=== PATIENT | female | born 1950 | race Caucasian/White ===

== ENCOUNTER 2020-06-15 07:32 | Outpatient (REF) | payer MEDICARE, MEDICAID, SELFPAY ==
[2020-06-15 11:17] LABS: Hematocrit 40.8 % (37-47); Hemoglobin 12.9 g/dl (12.0-16.0); Mean Corpuscular HGB Conc 31.6 g/dl (31.0-35.0); Mean Corpuscular Hemoglobin 28.6 pg (27.0-33.0); Mean Corpuscular Volume 90.5 fL (80-98); Mean Platelet Volume 11.7 fL (9.4-12.3); Platelet Count 183 X10*3/uL (160-400); Red Blood Count 4.51 X10*6/uL (4.20-5.50); Red Cell Distribution Width 12.6 % (11.0-16.0); White Blood Count 7.4 X10*3/uL (4.8-10.8)
[2020-06-15 12:04] LABS: Alanine Aminotransferase 16 U/L (0-31); Alkaline Phosphatase 68 U/L (39-117); Anion Gap 11 (12-20); Aspartate Amino Transferase 19 U/L (5-31); Bilirubin Total 0.4 mg/dL (0.0-1.0); Blood Urea Nitrogen 13 mg/dL (9-16); Carbon Dioxide 29 mmol/L (22-29); Chloride 104 mmol/L (96-108); Cholesterol 126 mg/dL; Estimated Glomerular Filt Rate 57; Glucose Fasting 114 mg/dL (60-99); HDL Cholesterol 46 mg/dL; LDL Cholesterol Calculated 60 mg/dl; Potassium 5.1 mmol/L (3.3-5.1); Sodium 139 mmol/L (135-145); Total Protein 6.6 g/dL (6.5-8.0); Triglycerides 103 mg/dL
[2020-06-15 12:36] LABS: Estimated Average Glucose 114 mg/dL; Hemoglobin A1c % 5.6 %
== END 2020-06-15 07:33 | disposition home or self-care (01) ==
LOC: HO.MANLDS 07:32
PROVIDERS: PCP Internal Medicine; Visit Provider Internal Medicine
DX: R73.01 Impaired fasting glucose (principal); I10 Essential (primary) hypertension
CPT/HCPCS: 36415; 80053; 80061; 83036; 85027

== ENCOUNTER 2023-03-08 10:36 | Outpatient (REF) | payer MEDICARE, MEDICAID, SELFPAY ==
[2023-03-08 13:16] LABS: Appearance Urine Turbid; Color Urine Yellow; Glucose Urine UA Negative (Negative); Leukocyte Esterase Urine Large (3+) (Negative); Nitrite Urine Positive (Negative); PH 5.5 (5.0-9.0); UMIC TRIGGER UACC YES; Urine Blood Large (3+) (Negative); Urine Ketones Negative (Negative); Urine Protein 300 (3+) mg/dL (Neg-Trace)
[2023-03-08 13:27] LABS: Bacteria Urine 4+ (None Seen); Hyaline Casts Urine 0-2 /LPF (0-2); Squamous Epithelial Cell Urine >20 /HPF (0-2); UACC Culture Trigger YES; WBC Urine >50 /HPF (0-5)
== END 2023-03-08 10:37 | disposition home or self-care (01) ==
LOC: HO.MANLDS 10:36
PROVIDERS: Visit Provider Physician Assistant
DX: R30.0 Dysuria (principal)
CPT/HCPCS: 81001; 87086; 87088; 87186

== ENCOUNTER 2023-03-28 10:53 | Outpatient (REF) | payer OTHER, SELFPAY ==
[2023-03-28 13:23] LABS: Appearance Urine Clear; Color Urine Yellow; Glucose Urine UA Negative (Negative); Leukocyte Esterase Urine Trace (Negative); Nitrite Urine Negative (Negative); PH 5.5 (5.0-9.0); Specific Gravity - Urine 1.015 (1.005-1.025); UMIC TRIGGER UACC YES; Urine Blood Moderate (2+) (Negative); Urine Ketones Negative (Negative); Urine Protein 100 (2+) mg/dL (Neg-Trace)
[2023-03-28 13:26] LABS: Bacteria Urine None Seen (None Seen); Hyaline Casts Urine 0-2 /LPF (0-2); UACC Culture Trigger YES
== END 2023-03-28 10:54 | disposition home or self-care (01) ==
LOC: HO.MANLDS 10:53
PROVIDERS: Visit Provider Physician Assistant
DX: R30.0 Dysuria (principal)
CPT/HCPCS: 81001; 87086

== ENCOUNTER 2024-06-17 14:14 | Outpatient (REF) | payer OTHER, SELFPAY ==
--- OUTSIDE RECORDS SUMMARY | 2024-06-17 15:36 | XMS_ITS | Encounter Summary ---
Author Organization [employer] Address [address] [facility] [address] [place] [address] Care Team Providers Care Sheet Metal Supervisor Name Role Phone PcpTristian Unassigned Primary Care Provider U navailable Encounter Details Date Type Department Care Team (Latest Contact Info) Description 03/30/2020 Abstract [facility] Dental, Provider, DDS Social History Tobacco Use Types Packs/Day Years Used Date Smoking Tobacco: Never Assessed Comments Unknown Sex and Gender Information Value Date Recorded Sex Assigned at Female 03/10/2022 6:44 PM EDT Legal Sex Female 5:35 PM EDT Gender Identity Choose not to disclose 3 11:54 AM EST Sexual Orientation Choose not to disclose 2022 11:54 AM EST documented as of this encounter Plan of Treatment Upcoming Encounters Date Type Department Care Team (Late st Contact Info) Description 08/14/2024 12:00 PM EDT Office Visit [facility] Dental [address] [place] [address] Yuli Ramirez LLD [address] [place] [address] documented as of this encounter Visit Diagnoses Not on filedocumented in this encounter Care Teams Sheet Metal Supervisor Relationship Specialty Start Date End Date PcpTristianssusha PCP - General Family Medicine 09/05/22 documented as of this encounter
--- OUTSIDE RECORDS SUMMARY | 2024-06-17 15:36 | XMS_ITS | Clinical Summary ---
Author Organization [employer] Address [address] [facility] [address] [place] [address] Care Team Providers Care Service Agent Name Role Phone PcpTristian Unassigned Primary Care Provider U navailable Allergies Active Allergy Reactions Criticality Noted Date Comments Codeine Nausea Only 05/26/2022 Oxycodone-Acetaminophen 05/26/2022 Other reaction(s): sick to stomach Medications atenolol (Tenormin) 100 MG tablet Atenolol Active albuterol 108 (90 Base) MCG/ACT inhaler INHALE 2 PUFFS BY MOUTH EVERY 4 HOURS NEEDED FOR SHORTNESS OF BREATH OR WHEEZING 2 Active fluticasone (Flonase) 50 MCG/ACT nasal spray SHAKE LIQUID AND USE 2 SPRAYS IN EACH NOSTRIL EVERY DAY 2 Active meloxicam (Mobic) 15 MG tablet Take 15 mg by mouth in the morning. 3 Active simvastatin (Zocor) 40 MG tablet 1 tablet in the morning. Active Sod Fluoride-Potass ium Nitrate 1.1-5 % paste Apply a thin ribbon of SF 5000 Plus to a toothbrush. [place] thoroughly for two minutes. Expectorate after use. For best results, do not eat, drink, or rinse for 30 minutes. 51 g 4 3 Active Incruse Ellipta 62.5 MCG/ACT aerosol powder Inhale 1 puff in the morning. 3 Active traMADol (Ultram) 50 MG tablet TAKE 2 TABLETS BY MOUTH FOUR TIMES DAILY NEEDED 3 Active QUEtiapine (SEROquel) 100 MG tablet Take 100 mg by mouth at bedtime. 3 Active oxybutynin XL (Ditropan-XL) 10 MG 24 hr tablet Take 10 mg by mouth in the morning. 3 Active nicotine (Nicoderm, Step 1) 21 MG/24HR patch Place 1 patch on the skin in the morning. Active mirtazapine (Remeron) 30 MG tablet Take 30 mg by mouth in the morning. 3 Active hydroquinone 4 % cream APPLY TO THE AFFECTED AREA ONCE EVERY DAY 2 Active fluticasone (Flonase) 50 MCG/ACT nasal spray Administer 2 sprays into affected nostril(s) in the morning. 2 Active cetirizine (ZyrTEC) 10 MG tablet 1 tablet in the morning. Active aspirin 81 MG EC tablet Take 81 mg by mouth in the morning. Active acetaminophen (Tylenol) 325 MG tablet Take 650 mg by mouth every 6 (six) hours if needed. 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 05/26/2022 Encounters Date Type Department Care Team Description 03/22/2024 10:40 AM EST Office Visit [facility] DENTAL [address] [place] [address] Atilio Watts Jr., DMD from Last 3 Months Immunizations Name Administration Dates Next Due Influenza High-dose Quadrivalent Preservative Fr 03/03/2022 Influenza Quadrivalent Adjuvanted 03/15/2021 Influenza, High Dose Seasonal, Preservative Free 01/11/2018 Influenza, seasonal, injectable, preservative fr 01/09/2020 Pfizer Covid-19 Vaccine 12+ 03/01/2021 Pneumococcal Conjugate PCV 13 01/05/2018 Tdap 01/15/2018 Zoster, Recombinant 03/09/2018 Family History Medical History Relation Name Comments Cataracts Mother Relation Name Status Comments Mother Social History Tobacco Use Types Packs/Day Years Used Date Smoking Tobacco: Some Days Cigarettes Passive Smoke Exposure: Never Tobacco Cessation:Ready to Q uit: Not Asked; Counseling Given: Not Answered Alcohol Use Standard Drinks/Week Comments Not Currently 0 (1 standard drink = 0.6 oz pur e alcohol) Comments Unknown Sex and Gender Information Value Date Recorded Sex Assigned at Female 03/10/2022 6:44 PM EDT Legal Sex Female 5:35 PM EDT Gender Identity Choose not to disclose 11:54 AM EST Sexual Orientation Choose not to disclose 2022 11:54 AM EST Plan of Treatment Upcoming Encounters Date Type Department Care Team (Late st Contact Info) Description 08/14/2024 12:00 PM EDT Office Visit [facility] Dental [address] [place] [address] Yuli Ramirez LLD [address] [place] [address] Health Maintenance Due Date Last Done Comments CT Colonography 1949 Colonoscopy 1949 Colorectal Cancer Screening 1949 Depression Screening 1949 FIT DNA/Cologuard 1949 FIT 1949 FOBT 1949 Lipid Panel 1949 SDOH Screening 1949 Sigmoidoscopy 1949 Alcohol/Substance Use Screening 1961 Hepatitis C Screening 1967 RSV Patients and Patients Aged 60 years or older (1 - Risk 60-74 years 1-dose series) 2009 Pneumococcal Vaccine: 50+ Years (2 of 2 - PPSV23) 03/02/2018 01/05/2018 Zoster Vaccines (2 of 2) 05/04/2018 03/09/2018 Mammogram 09/10/2020 09/10/2018, 07/25/2017 COVID-19 Vaccine ( season) 2024 02/22/2023, 03/01/2022, 03/01/2021, Additional history exists Tobacco Screening 06/30/2024 06/30/2023 Dental X-Ray: Bitewings 07/01/2024 06/30/19 24, 09/28/2020, 05/28/2019, Additional history exists Dental Oral Exam 08/09/2024 02/08/2024, , 05/26/2022, Additional history exists Dental Prophylaxis 08/09/2024 02/08/2024, 0 06/30/2023, 11/23/2022, Additional history exists Dental X-Ray: Full Mouth 07/01/2026 06/30/2023, 12/2017 DTaP/Tdap/Td Vaccines (2 - Td or Tdap) 01/16/2028 01/15/2018 Influenza Vaccine Completed 01/22/2024, , 03/03/2022, Additional history exists HIB Vaccines Aged Out No longer eligi ble based on patient's age to complete this topic HPV Vaccines Aged Out No longer eligi ble based on patient's age to complete this topic Hepatitis A Vaccines Aged Out No long er eligible based on patient's age to complete this topic Hepatitis B Vaccines Aged Out No long er eligible based on patient's age to complete this topic IPV Vaccines Aged Out No longer eligi ble based on patient's age to complete this topic Meningococcal Vaccine Aged Out No bob jesenia eligible based on patient's age to complete this topic RSV under 20 months Aged Out No longe r eligible based on patient's age to complete this topic Rotavirus Vaccines Aged Out No longer eligible based on patient's age to complete this topic Procedures Procedure Name Priority Date/Time Associated Diagnosis Comments 8 I RESTORATIVE - RESIN-BASED COMPOSITE RESTORATIONS - DIRECT - RESIN-BASED COMPOSITE - ONE SURFACE, ANTERIOR Routine 03/22/2024 10:40 AM EST Full PROPHYLAXIS - ADULT Routine 024 10:10 AM EDT PERIODIC ORAL EVALUATION - ESTABLISHED PATIENT Routine 02/08/2024 10:10 AM EDT DIAGNOSTIC - DIAGNOSTIC IMAGING - INTRAORAL - COMPREHENSIVE SERIES OF RADIOGRAPHIC IMAGES Routine 06/30/2023 11:00 AM EST from Last 3 Months or Most Recently Relevant to Health Maintenance Insurance DENTAL - [facility] D[facility] - [facility]SN FULL (MEDICAID) Care Teams Service Agent Relationship Specialty Start Date End Date PcpTristian Unassigned PCP - General Family Medicine 09/05/22
--- OUTSIDE RECORDS SUMMARY | 2024-06-17 15:36 | XMS_ITS | Data Portability ---
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) [facility] MODERATE MUST MEET 2 OUT OF 3 ELEMENTS: PROBLEMS, DATA OR RISK ELEMENT 1: PROBLEMS ADDRESSED 1 OR MORE CHRONIC ILLNESS WITH EXACERBATION OR 2 OR MORE STABLE CHRONIC ILLNESSES OR 1 UNDIAGNOSED NEW PROBLEM OR 1 ACUTE ILLNESS W/SYMPTOMS OR 1 ACUTE COMPLICATED INJURY ELEMENT 2: DATA MUST MEET 1 OF 3 CATEGORIES CATEGORY 1: REVIEW OF PRIOR EXTERNAL NOTES, REVIEW OF RESULTS, ORDERING OF EACH TEST, ASSESSMENT REQUIRING INDEPENDENT HISTORIAN OR CATEGORY 2: INDEPENDENT INTERPRETATION OF TESTS BY ANOTHER PHYSICIAN OR SPECIALIST OR CATEGORY 3: DISCUSSION OF MGT OR TEST INTERPRETATION W/EXTERNAL PHYSICIAN OR SPECIALIST ELEMENT 3: RISK RISK OF COMPLICATIONS AND/OR MORBIDITY OR MORTALITY OF PATIENT MANAGEMENT PROVIDER MUST THOROUGHLY DOCUMENT EACH ELEMENT THAT IS COVERED Not available 05/10/2023 11:19:38 2023 2023 [id number] [place]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) [facility] MODERATE MUST MEET 2 OUT OF 3 ELEMENTS: PROBLEMS, DATA OR RISK ELEMENT 1: PROBLEMS ADDRESSED 1 OR MORE CHRONIC ILLNESS WITH EXACERBATION OR 2 OR MORE STABLE CHRONIC ILLNESSES OR 1 UNDIAGNOSED NEW PROBLEM OR 1 ACUTE ILLNESS W/SYMPTOMS OR 1 ACUTE COMPLICATED INJURY ELEMENT 2: DATA MUST MEET 1 OF 3 CATEGORIES CATEGORY 1: REVIEW OF PRIOR EXTERNAL NOTES, REVIEW OF RESULTS, ORDERING OF EACH TEST, ASSESSMENT REQUIRING INDEPENDENT HISTORIAN OR CATEGORY 2: INDEPENDENT INTERPRETATION OF TESTS BY ANOTHER PHYSICIAN OR SPECIALIST OR CATEGORY 3: DISCUSSION OF MGT OR TEST INTERPRETATION W/EXTERNAL PHYSICIAN OR SPECIALIST ELEMENT 3: RISK RISK OF COMPLICATIONS AND/OR MORBIDITY OR MORTALITY OF PATIENT MANAGEMENT PROVIDER MUST THOROUGHLY DOCUMENT EACH ELEMENT THAT IS COVERED Not available 2023 10:50:57 01/01/2024 01/01/2024 Patient presente d to office today for their Medicare Annual Wellness Visit. Education was provided on healthy nutrition, including a diet rich in fruits and vegetables, minimizing simple carbohydrates, salt, and saturated fats. Encouraged regular cardiovascular exercise such as walking at least 30 minutes daily, 5 times per week. Emphasized preventive health measures and educated pt on fall prevention and community-based lifestyle interventions to help reduce health risks and promote healthy living. [email or web address] Not available 12/27/2023 14:04:59 Plan of Treatment Reminders Order Date Submit Date Provider Last Modified By Organization Details Last Modified Time Details Appointments FOLLOW UP 15 2024 01:45P M DR KAUR Not available Not available Not available MEDICARE ANNUAL WELLNESS 2024 10:00A M DR KAUR Not available Not available Not available Lab lipid panel, blood 2023 [facility], [address] [place] [address], [place], [address], 01/01/2024 10:59:37 hemoglobi n, gastroint estinal, stool 2023 024 [facility], [address] [place] [address], [address], 01/01/2024 10:59:37 CMP, serum or plasma 2023 024 [facility], [address] [place] [address], [place], [address], 01/01/2024 10:59:37 CBC w/ auto diff 2023 [facility], [address] [place] [address], [place], [address], 01/01/2024 10:59:38 vitamin D, 25-hydrox y, total, serum 2023 [facility], [address] [place] [address], [place], [address], 01/01/2024 10:59:38 Referral None recorded. Procedures None recorded. Surgeries None recorded. Imaging None recorded. Medication Orders triamtere ne 37.5 mg-hydroc hlorothia zide 25 mg tablet 2023 024 [id number], [address], [place], [id number], 05/10/2023 11:21:57 Patient TargetsNo targets recorded. Patient Instructions Encounter Date Encounter Id Patient Instructions Last Modified By Organization Details Last Modified Time 11/18/2022 [id number] prediabetes: car e instructions Not available 11/18/2022 10:23:14 high blood pressure: care instructions Not available 11/18/2022 10:23:15 learning about high blood pressure Not available 11/18/2022 10:23:15 chronic obstructive pulmonary disease (COPD): care instructions Not available 11/18/2022 10:23:15 learning about copd and how to prevent lung infections Not available 11/18/2022 10:23:15 05/10/2023 [id number] leg and ankle edema: care instructions Not available 05/10/2023 11:21:51 2023 [id number] allergies: care instructions Not available 2023 10:50:58 managing your allergies: care instructions Not available 2023 10:50:58 01/01/2024 [id number] pulse oximetry* Not available 01/01/2024 10:58:20 advance care planning: care instructions Not available 01/01/2024 10:58:15 Discussed and explained advance directives such as standard forms to the {{patient caregiv er patient and caregiver}}. Face to face discussion lasted for a duration of ___ minutes. [email or web address] Not available 12/27/2023 14:04:59 Reason for Referral None Reported. Results Created Date Observation Date Name Description Value Unit Range Abnormal Flag Note LastModifiedBy Organization Detail LastModifiedTime 01/01/20 24 01/01/2024 pulse oxime try* Result 99 Not Available [facility] [address] [facility] [address], [place], [address], 12/27/2023 14:06:51 04/07/20 23 04/07/2023 , ligia er No observ ation record ed. [email or web address] [facility] [address] [facility], [place], [address], 04/11/2023 08:39:45 Result Notes None recorded. Problems Name Problem SNOMED Code Status Onset Date Resolution Date Notes Provider Name and Address Organization Details Recorded Time Allergic rhinitis 49484339 Active 2018 Not Available [facility] 3 11:56:27 Osteopeni a 572379220 Active 2019 Not Available [facility] 3 11:56:27 Bilateral cataracts 32321111 Active 2020 Not Available [facility] 3 11:56:27 Hyperkera totic actinic keratosis 797106115 Active 2021 Not Available [facility] 3 11:56:27 Overactiv e urinary bladder 552338920 Active 2021 Not Available [facility] 3 11:56:27 Schizophr enia 36735999 Active 2022 Not Available [facility] 3 11:56:27 Acute exacerbat ion of chronic obstructi ve pulmonary disease 984978014 Active 2022 Not Available [facility] 3 11:56:27 Dysuria 58546557 Active 2022 Not Available [facility] 3 11:56:27 Acute urinary tract infection 247793885 Active 2022 DEIRDRE PEREZ [address] [facility], [place], [address], [facility] 3 09:20:31 Osteoarth ritis of knee 416651009 Active 2022 Noel Kaur DO [address] [facility], [place], [address], [facility] 3 14:10:09 Edema of lower extremity 683374411 Active 2023 Noel KaurDO [address] [place] [address], [address], [facility] 4 11:19:45 Essential hypertens ion 78915896 Active 2017 Not Available [facility] 3 11:56:27 Chronic obstructi ve pulmonary disease 47234601 Active 2017 Not Available [facility] 3 11:56:27 Degenerat ion of lumbar intervert ebral disc 41795769 Active 2017 Not Available [facility] 3 11:56:27 Osteoarth ritis 291177824 Active 2017 Not Available [facility] 3 11:56:27 Impaired fasting glycemia 783973042 Active 2017 Not Available [facility] 3 11:56:27 Tobacco dependenc e syndrome 41196417 Active 2023 Noel KaurDO [address] [place] [address], [address], [facility] 4 10:54:41 Acquired trigger finger of right middle finger 527727010866 105 Active 2023 Noel KaurDO [address] [place] [address], [address], [facility] 4 13:06:58 Notes:Some problems listed i n Document: #[id number] could not be added to this patient's chart. Please review this document and add these problems to the patient's chart manually as needed. Problem Notes None recorded. Procedures Surgical History None recorded. Imaging Results Imaging Date Name Status LastModified by Organiz ation Details LastModified Time 04/07/2023 US, bladder completed [email or web address] [address], [place], [address], 04/11/2023 08:39:45 Procedure Notes None recorded. Medical Equipment None Reported. Allergies Allergen ID Allergen Name Allergen Category Reaction Reaction Severity Criticality Documentation Date Start Date Code Code System Note Provider Name and Address Organization Details Recorded Time 4538 Bactrim medicatio n wheezing moderate Not available 10/09/2020 12828 9 RxNorm DEIRDRE PEREZ [address] [place], [address], [facility] 14:23:51 873 codeine medicatio n Not available Not available Not available 08/16/2017 2670 RxNorm Ginger [facility], [facility] 8 08:16:48 Medications Name Sig Start Date Stop Date Status Note LastModified by Organization Details LastModified Time amoxicillin 500 mg capsule TAKE 4 CAPSULES BY MOUTH 1 TIME 06/17 completed Not Available Not Available Not Available clotrimazol e 10 mg ryan 01/16 completed Not Available Not Available Not Available albuterol sulfate 2.5 mg/3 mL (0.083 %) solution for nebulizatio n USE 1 VIAL VIA NEBULIZAT ION THREE TIMES DAILY active Not Available Not Available No t Available oxybutynin chloride ER 10 mg tablet,exte nded release 24 hr TAKE 1 TABLET BY MOUTH EVERY DAY 05/10 completed Not Available Not Available Not Available azithromyci n 250 mg tablet TAKE 2 TABLETS BY MOUTH ON DAY 1 THEN TAKE 1 TABLET BY MOUTH DAILY FOR 4 MORE DAYS 07/11 completed Not Available Not Available Not Available fluconazole 150 mg tablet TAKE 1 TABLET BY MOUTH ONCE DAILY FOR 3 DAYS 10/06 completed Not Available Not Available Not Available meloxicam 15 mg tablet TAKE 1 TABLET BY MOUTH EVERY DAY 08/19 completed Not Available Not Available Not Available hydroquinon e 4 % topical cream APPLY TO THE AFFECTED AREA ONCE EVERY DAY active Not Available Not Available No t Available sulfamethox azole 800 mg-trimetho prim 160 mg tablet Take 1 tablet every 12 hours by oral route for 7 days. 2024 active Not Available Not Available Not Avai lable tramadol 50 mg tablet TAKE 2 TABLETS BY MOUTH FOUR TIMES DAILY NEEDED active Not Available Not Available No t Available quetiapine 100 mg tablet TAKE 1 TABLET BY MOUTH AT BEDTIME 08/19 completed Not Available Not Available Not Available triamcinolo ne acetonide 0.1 % topical cream APPLY THIN LAYER TOPICALLY TO THE AFFECTED AREA TWICE DAILY 11/16 completed Not Available Not Available Not Available simvastatin 40 mg tablet TAKE 1 TABLET BY MOUTH EVERY DAY active Not Available Not Available No t Available ketorolac 0.5 % eye drops INSTILL 1 DROP INTO LEFT EYE THREE TIMES DAILY FOR 3 WEEKS FOLLOWING SURGERY ON 02/01/2102/22 completed Not Available Not Available Not Available amoxicillin 875 mg tablet TAKE 1 TABLET BY MOUTH EVERY 12 HOURS FOR 7 DAYS 03/29 completed Not Available Not Available Not Available cephalexin 500 mg capsule TAKE 1 CAPSULE BY MOUTH TWICE DAILY FOR 7 DAYS 08/30 completed Not Available Not Available Not Available mirtazapine 30 mg tablet TAKE 1 TABLET BY MOUTH EVERY DAY active Not Available Not Available No t Available nicotine 21 mg/24 hr daily transdermal patch Apply 1 patch every day by transderm al route for 42 days. 08/19 completed Not Available Not Available Not Available triamterene 37.5 mg-hydrochl orothiazide 25 mg tablet TAKE 1 TABLET BY MOUTH EVERY DAY IN THE MORNING active Not Available Not Available No t Available mupirocin 2 % topical ointment APPLY SMALL AMOUNT TOPICALLY TO THE AFFECTED AREA FOUR TIMES DAILY FOR 10 DAYS 11/16 completed Not Available Not Available Not Available mirtazapine 15 mg tablet TAKE 1 TABLET BY MOUTH AT BEDTIME 11/18 completed Not Available Not Available Not Available levofloxaci n 500 mg tablet TAKE 1 TABLET BY MOUTH EVERY 24 HOURS FOR 7 DAYS 04/05 completed Not Available Not Available Not Available methylpredn isolone 4 mg tablets in a dose pack FOLLOW PACKAGE DIRECTION S 04/05 completed Not Available Not Available Not Available albuterol sulfate HFA 90 mcg/actuati on aerosol inhaler INHALE 2 PUFFS BY MOUTH EVERY 4 HOURS NEEDED FOR SHORTNESS OF BREATH OR WHEEZING active Not Available Not Available No t Available fluticasone propionate 50 mcg/actuati on nasal spray,suspe nsion SHAKE LIQUID AND USE 2 SPRAYS IN EACH NOSTRIL EVERY DAY active Not Available Not Available No t Available sodium fluoride 1.1 % dental gel BRUSH ONCE A DAY BEFORE BEDTIME DO NOT RINSE active Not Available Not Available No t Available atenolol 50 mg tablet TAKE 1 TABLET BY MOUTH EVERY DAY active Not Available Not Available No t Available naproxen 500 mg tablet TAKE 1 TABLET BY MOUTH TWICE DAILY active Not Available Not Available No t Available Boostrix Tdap 2.5 Lf unit-8 mcg-5 Lf/0.5 mL intramuscul ar syringe 07/02 completed Not Available Not Available Not Available sodium fluoride 1.1 %-potassium nitrate 5 % dental paste active Not Available Not Available Not Available diclofenac 1 % topical gel APPLY 2 GRAMS EXTERNALL Y TO THE AFFECTED AREA FOUR TIMES DAILY 08/19 completed Not Available Not Available Not Available Chantix Starting Month Box 0.5 mg (11)-1 mg (42) tablets in dose pack Take 1 startr pk by oral route as directed for 30 days. 08/31 completed Not Available Not Available Not Available Incruse Ellipta 62.5 mcg/actuati on powder for inhalation INHALE 1 PUFF INTO THE LUNGS EVERY DAY active Not Available Not Available No t Available Shingrix (PF) 50 mcg/0.5 mL intramuscul ar suspension, kit 07/02 completed Not Available Not Available Not Available Vitals Date Recorded Body height Body mass index (BMI) Body weight Heart rate Oxygen saturation Oxygen saturation in Arterial blood by Pulse oximetry Systolic blood pressure Diastolic blood pressure Provider Name and Address Organization Details Last Updated DateTime 3 157.48 cm 28 kg/m2 95114.6 3 g 62 /min 98 % 98 % 148 mm[Hg] 80 mm[Hg] Edilma Kline [facility] 3 10:14:41 Date Recorded Body height Body mass index (BMI) Body weight Heart rate Oxygen saturation Oxygen saturation in Arterial blood by Pulse oximetry Systolic blood pressure Diastolic blood pressure Provider Name and Address Organization Details Last Updated DateTime 4 157.48 cm 27.4 kg/m2 88397.8 6 g 65 /min 97 % 97 % 142 mm[Hg] 68 mm[Hg] Noel Kaur, DO [address] [place], [address] [place] [address] Internal [facility] 4 10:27:48 Date Recorded Body height Body mass index (BMI) Body weight Heart rate Oxygen saturation Oxygen saturation in Arterial blood by Pulse oximetry Systolic blood pressure Diastolic blood pressure Provider Name and Address Organization Details Last Updated DateTime 4 160.02 cm 24.9 kg/m2 80156.4 5 g 66 /min 99 % 99 % 134 mm[Hg] 70 mm[Hg] Joey Lee Vining [facility] 4 10:36:09 Date Recorded Body height Body mass index (BMI) Body weight Heart rate Oxygen saturation Oxygen saturation in Arterial blood by Pulse oximetry Systolic blood pressure Diastolic blood pressure Provider Name and Address Organization Details Last Updated DateTime 5 160.02 cm 25.9 kg/m2 80936.4 9 g 64 /min 98 % 98 % 128 mm[Hg] 74 mm[Hg] Joey Liam [facility] 5 13:37:39 Social History Question Answer Notes LastModified by Organizat ion Details LastModified Time Tobacco Smoking Status Current Some Day Smoker [facility] 12/18/2017 09:58:45 What Was The Date Of Your Most Recent Tobacco Screening? 06/17/2024 [email or web address] Information not available 06/17/2024 How Much Tobacco Do You Smoke? 0.25 PPD Information not available 03/02/2022 Do You Or Have You Ever Used Any Other Forms Of Tobacco Or Nicotine? No Information not available 03/02/2022 Sex: Unknown Functional Status None recorded. Mental Status None recorded. Family History Nothing Reported. Medical History No medical history recorded. Gynecological HistoryNo gynecological history recorded. Obstetrics History GPAL:G 0 P 0 0 0 0 Immunizations Vaccine Type Date Status Note Provider Nam e and Address Organization Details Recorded Time COVID-19, mRNA, LNP-S, PF, 30 mcg/0.3 mL dose 1 completed Not Available [facility] 09/14/2022 21:09:49 COVID-19, mRNA, LNP-S, PF, 30 mcg/0.3 mL dose 1 completed Not Available [facility] 09/14/2022 21:09:49 COVID-19, mRNA, LNP-S, PF, 30 mcg/0.3 mL dose 2 completed Not Available [facility] 09/14/2022 21:09:49 COVID-19, mRNA, LNP-S, PF, 30 mcg/0.3 mL dose 1 completed Not Available [facility] 09/14/2022 21:09:49 influenza, unspecified formulation 2 completed Not Available [facility] 09/14/2022 21:09:49 RSV, mRNA, injectable, PF 3 completed Joey chambers [facility] 01/19/2024 14:53:20 zoster live 8 completed Not Available [facility] 09/14/2022 21:09:49 Tdap 8 completed Not Available [facility] 09/14/2022 21:09:49 pneumococcal polysaccharide PPV23 9 completed Not Available [facility] 09/14/2022 21:09:49 Influenza, split virus, quadrivalent, preservative 9 completed Not Available [facility] 09/14/2022 21:09:49 Influenza, split virus, quadrivalent, preservative 0 completed Not Available [facility] 09/14/2022 21:09:49 Past Encounters Encounter ID Performer Location Encounter Start Date Encounter Closed Date Diagnosis/Indication Diagnosis SNOMED-CT Code Diagnosis ICD10 Code Diagnosis Note [id number] Marla Mohamud NP, S [facility] [address] [facility], [place] [address] 08/16/2017 10:13:56 08/18/2017 08:12:43 Moderate chronic obstructive pulmonary disease 092111310 J44.9 continue current therapy Seasonal a llergic rhinitis 168680288 J30.2 Acute sinusitis 81359452 J01.90 given z-pack, to call if no better [id number] Noel Kaur DO [facility] [address] [facility],[place] [address] [facility] [place] [address] 12/18/2017 09:55:26 12/18/2017 10:29:12 Chronic obstructive pulmonary disease 87678233 J44.9 still smoking and is not interested in quitting despite my discussion Essential hypertension 68199812 I10 stable at home, relates doing well and tolerates meds Impaired f asting glycemia 069383230 R73.01 will need some lab work including fasting [id number] Noel Kaur DO [facility] [address] [facility],[place] [address] 07/02/2018 09:24:16 07/02/2018 11:26:16 Essential hypertension 86091062 I10 stable at home, relates doing well and tolerates meds Impaired f asting glycemia 202275356 R73.01 will need some lab work including fasting Chronic ob structive pulmonary disease 35578578 J44.9 still smoking and is not interested in quitting despite my discussion using her ventolin when very sob Allergic rhinitis 086885 04 J30.9 still a problem with her rhinnits despite her otc meds [id number] Noel AnnaleeBrooke Deysiamaury [facility] [address] [facility] [address],[place] [address] 08/13/2018 13:41:07 08/13/2018 14:36:58 Chronic obstructive pulmonary disease 45623988 J44.9 still smoking and is not interested in quitting despite my discussion using her ventolin when very sob Essential hypertension 58279916 I10 stable at home, relates doing well and tolerates meds Osteoarthritis 169762761 M19.90 will cont to check with out[pt care will try to use meloxicam [id number] Noel AnnaleeBrooke Kaur [facility] [address] [facility] [address],[place] [address] 12/12/2018 13:44:57 12/12/2018 14:19:08 Chronic obstructive pulmonary disease 53231452 J44.9 still smoking and is not interested in quitting despite my discussion using her ventolin when very sob Impaired f asting glycemia 371793073 R73.01 will need some lab work including fasting Essential hypertension 62915444 I10 stable at home, relates doing well and tolerates meds Allergic rhinitis 071883 04 J30.9 still a problem with her rhinnits despite her otc meds but will cont flonase and zyrtec Osteoarthritis 717826398 M19.90 will cont to check with out[pt care will try to use meloxicam prn also is going to try collagen peptides (bovine) Pruritic rash 07293168 L 28.2 [id number] Noel Kaur [facility] [address] [facility] [address],[place] [address] 04/24/2019 10:56:38 04/24/2019 11:35:20 Hepatitis C screening 030790213 Z11.59 Osteopenia 204341539 M85 .80 will get an bmd Essential hypertension 04784202 I10 stable at home, relates doing well and tolerates meds Impaired f asting glycemia 486979691 R73.01 will need some lab work including fasting [id number] Noel Kaur [facility] [address] [facility],[place] [address] 08/14/2019 10:23:32 08/14/2019 11:04:14 Chronic obstructive pulmonary disease 99062087 J44.9 still smoking and is not interested in quitting despite my discussion despite having the ongoing pandemic using her ventolin when very sob Lateral ep icondylitis of left humerus 9186814266 59444 M77.12 will need to treat conservati vely will need to wear a brace and we showed her which type to use Bursitis o f olecranon of left elbow 5615585211 25994 M70.22 resolved and well healed [id number] Noel Kaur [facility] [address] [facility] [address],[place] [address] 09/25/2019 08:59:18 09/25/2019 10:59:09 Chronic obstructive pulmonary disease 59978725 J44.9 frustratin gly she is still smoking and is still not interested in quitting despite my discussion despite having the ongoing pandemic using her ventolin when very sob Impaired f asting glycemia 143962814 R73.01 will need some lab work including fasting Essential hypertension 88468082 I10 stable at home, relates doing well and tolerates meds Cellulitis of left elbow 0093087738 4050103 L03.114 Osteoarthritis 149208990 M19.90 will cont to check with out[pt care will try to use meloxicam prn also is going to try collagen peptides (bovine) [id number] DEIRDRE PEREZ [facility] [address] [facility] [address],[place] [address] 11/04/2019 14:52:46 11/04/2019 15:42:10 Chronic obstructive pulmonary disease 64423514 J44.9 stable Cellulitis of upper limb 274022392 L03.119 will treat again with Keflex [id number] DEIRDRE PEREZ [facility] [address] [facility],[place] [address] 11/15/2019 10:54:54 11/15/2019 11:56:59 Shoulder pain 94806173 M25.519 will check shoulder for possible AC joint pain Pain in right knee 17014 87476 28137 M25.561 the patient has a medial mencius tear hx documented the patient states she is having medial joint line pain moving into the proximal tibia has been very active which may have contribute d Medial epicondylitis 532 34784 M77.02 the patient would like to continue conservati ve therapy with brace and ibuprofen does not want to see ortho for shot/injec tion Cellulitis 226251097 L03 .90 resolved [id number] Noel Kaur DO [facility] [address] [facility],[place] [address] 01/17/2020 10:04:46 01/17/2020 11:28:32 Essential hypertension 90876455 I10 stable at home, relates doing well and tolerates meds Impaired f asting glycemia 767014068 R73.01 will need some lab work including fasting but is doing great overall with exercise and wgt loss Chronic ob structive pulmonary disease 85224580 J44.9 frustratin gly she is still smoking and is still not interested in quitting despite my discussion despite having the ongoing pandemic using her ventolin when very sob Osteopenia 005964002 M85 .80 and is stable and without any worsening per recent bmd in jun Antibiotic prophylaxis indicated 365244482 Z78.9 will need for dental procedure [id number] Noel Kaur DO [facility] Internal Medicine [address] [facility],[place] [address] 07/13/2020 11:31:29 07/13/2020 12:50:06 Chronic obstructive pulmonary disease 82725290 J44.9 frustratin gly she is still smoking and is still not interested in quitting despite my discussion despite having the ongoing pandemic using her ventolin when very sob Impaired f asting glycemia 001661330 R73.01 will need some lab work including fasting but is doing great overall with exercise and wgt loss Essential hypertension 13588391 I10 stable at home, relates doing well and tolerates meds Acute urin jeremi tract infection 223897129 N39.0 ua dip is negative Degenerati on of lumbar intervertebral disc 56464699 M51.36 doing ok taking her supplement s and is staying active Candidiasis of vagina 72 150069 B37.3 Bursitis o f olecranon of left elbow 7257737074 45577 M70.22 resolved and well healed [id number] DEIRDRE PEREZ [facility] Internal Medicine [address] [facility] [address],[place] [address] 10/09/2020 14:04:24 10/09/2020 14:40:21 Soft tissue lesion of elbow region 741921033 M79.9 the patient and I will fu after contacting medical records Essential hypertension 06618447 I10 BP excellent Chronic ob structive pulmonary disease 50555630 J44.9 stable [id number] Noel Kaur DO [facility] Internal Medicine [address] [facility] [address],[place] [address] 11/16/2020 11:34:49 11/16/2020 12:18:45 Chronic obstructive pulmonary disease 42169314 J44.9 frustratin gly she is still smoking and is still not interested in quitting despite my discussion despite having the ongoing pandemic using her ventolin when very sob Impaired f asting glycemia 712152723 R73.01 will need some lab work including fasting but is doing great overall with exercise and wgt loss Essential hypertension 06205851 I10 stable at home, relates doing well and tolerates meds Bilateral cataracts 9572 2004 H26.9 Bilateral osteoarthritis of knees 1244201596 01325 M17.0 Pain of le ft elbow joint 9911477080 1658897 M25.522 [id number] DEIRDRE PEREZ [facility] Internal Medicine [address] [facility] [address] [address] 01/06/2021 09:55:18 01/06/2021 11:30:55 Pre-surgery evaluation 710595029 Z01.818 The patient was seen in the office today for pre-op evaluation . All medical conditions on patient's problem list were addressed and are currently stable, no interventi on needed at this time. Based on history and physical performed, the patient is cleared for surgery. Essential hypertension 72688325 I10 BP excellent today recheck in both arms was 122/83 R arm and 124/80 L armwell controlled , no interventi on needed Chronic ob structive pulmonary disease 21266399 J44.9 stable, no interventi on needed [id number] Noel Kaur DO [facility] Internal Medicine [address] [facility],[place] [address] 02/22/2021 11:13:00 02/22/2021 14:58:54 Chronic obstructive pulmonary disease 01001523 J44.9 frustratin gly she is still smoking and is still not interested in quitting despite my discussion despite having the ongoing pandemic using her ventolin when very sob Impaired f asting glycemia 142489750 R73.01 will need some lab work including fasting but is doing great overall with exercise and wgt loss Essential hypertension 16259781 I10 stable at home, relates doing well and tolerates meds Pain of le ft elbow joint 2465153736 1384864 M25.522 has a mass on this area a nodule and is quite irritated Nodule of skin of upper limb 928732830 R22.32 nodule is irritated and uncomforta ble [id number] Noel Kaur DO [facility] Internal Medicine [address] [facility],[place] [address] 08/30/2021 10:58:14 08/30/2021 12:06:37 Chronic obstructive pulmonary disease 36423378 J44.9 frustratin gly she is still smoking and is still not interested in quitting despite my discussion despite having the ongoing pandemic using her ventolin when very sobstates will consider using BREO Impaired f asting glycemia 180630656 R73.01 will need some lab work including fasting but is doing great overall with exercise and wgt loss Essential hypertension 49645282 I10 stable at home, relates doing well and tolerates meds Tobacco user 711494433 Z 72.0 patient cutting back relates that she is thinking of vaping Hyperkerat otic actinic keratosis 358874416 L57.0 cont to follow the dermatol Screening for malignant neoplasm of colon 415968513 Z12.11 REFUSED TO GET COLONOSCOP Y AND SHE WILL CONSIDER DOING THE COLOGUARD AND GET BACK [id number] Noel Kaur DO [facility] Internal Medicine [address] [facility],[address] [place] [address] 03/02/2022 10:11:28 03/02/2022 11:45:47 Chronic obstructive pulmonary disease 85750705 J44.9 frustratin gly she is still smoking and is still not interested in quitting despite my discussion despite having the ongoing pandemic using her ventolin when very sob Impaired f asting glycemia 222544413 R73.01 will need some lab work including fasting but is doing great overall with exercise and wgt loss Essential hypertension 10205109 I10 stable at home, relates doing well and tolerates meds Osteoarthritis 396299427 M19.90 will cont to check with out[pt care will try to use meloxicam prn also is going to try collagen peptides (bovine) Advance care planning 71 3184838 Z71.89 discussed Screening for malignant neoplasm of colon 496236104 Z12.11 REFUSED TO GET COLONOSCOP Y AND SHE WILL CONSIDER DOING THE COLOGUARD AND GET BACK Active or passive immunization 625348105 Z23 patient advised she is due for flu shot, pneu 13 & shingles Degenerati on of lumbar intervertebral disc 50505995 M51.36 doing ok taking her supplement s and is staying active [id number] DEIRDRE PEREZ [facility] Internal Medicine [address] [facility] [place] [address] 07/04/2022 15:01:43 07/04/2022 15:51:37 Schizophrenia 70528479 F20.1 will need to discuss case with Ness a new health care proxy up to date according to KATLIN whom talked to efra armijo have to sort through this with leatha and SAPPHIRE as the patient cannot make informed decisions currently Chronic ob structive pulmonary disease 07853445 J41.0 may have an exacerbati [facility] call back on monday with an update [id number] Noel Kaur DO [facility] Internal Medicine [address] [facility] on [address] [place] [address] 07/11/2022 11:37:04 07/11/2022 14:49:34 Schizophrenia 94369216 F20.1 she is doing well with the seroquel 100 hs as well as mirtazapin e hs toosleep is goodstill having some issues with paranoiaaaurora d this is especially noted at hstakes only seroquel at night with mirtazapin e will increase to 30mg due to some of her issues with paranoia Chronic ob structive pulmonary disease 82106322 J41.0 frustratin gly she is still smoking and is still not interested in quitting despite my discussion despite having the ongoing pandemic using her ventolin when very sobnow has a obvious bronchitis exacerbati onalbutero l nebulizer Advance care planning 71 0195312 Z71.89 discussed in detail Screening for malignant neoplasm of colon 331130513 Z12.11 REFUSED TO GET COLONOSCOP Y AND SHE WILL CONSIDER DOING THE COLOGUARD AND GET BACK Screening mammography 24 777885 Z12.31 Osteoarthr itis of right knee joint 0548682356 23432 M17.11 [id number] Noel Kaur [facility] Internal Medicine [address] [facility],[place] [address] 08/19/2022 10:03:49 08/19/2022 11:55:44 Essential hypertension 83852292 I10 stable at home, relates doing well and tolerates meds Schizophrenia 50259889 F 20.1 has stopped the seroquel 100 hs on her own , states the mirtazapin e is not working as well helping her sleepsleep is her issue now long discussion re quietapine no issues with paranoiawe have convinced her to take the 100mg seroquel and use it as a sleep med [id number] Noel Kaur [facility] Internal Medicine [address] [facility],[place] [address] 11/18/2022 10:08:55 11/18/2022 10:47:14 Chronic obstructive pulmonary disease 44342234 J41.0 still smoking and is still not interested in quitting despite my discussion despite having the ongoing pandemic using her ventolin when very sobnow has a obvious bronchitis exacerbati onalbutero l nebulizer Essential hypertension 92036409 I10 stable at home, relates doing well and tolerates meds Impaired f asting glycemia 462016591 R73.01 will need some lab work including fasting but is doing great overall with exercise and wgt loss [id number] Noel Kaur [facility] Internal Medicine [address] [facility],[place] [address] 05/10/2023 07:51:39 05/10/2023 14:05:08 Chronic obstructive pulmonary disease 47863710 J41.0 still smoking and is still not interested in quitting despite my discussion despite having the ongoing pandemic using her ventolin when very sobnow has a obvious bronchitis exacerbati onalbutero l nebulizer Essential hypertension 99265765 I10 stable at home, relates doing well and tolerates meds Schizophrenia 88857977 F 20.1 PRIOR:has stopped the seroquel 100 hs on her own , states the mirtazapin e is not working as well helping her sleepsleep is her issue now long discussion re quietapine no issues with paranoiawe have convinced her to take the 100mg seroquel and use it as a sleep med Edema of l ower extremity 696917686 R60.0 [id number] Noel Kaur [facility] Internal Medicine [address] [facility],[place] [address] 2023 08:06:13 07/07/2023 10:30:40 Edema of lower extremity 367546381 R60.0 no issues right now Chronic ob structive pulmonary disease 43738730 J41.0 still smoking and is still not interested in quitting despite my discussion despite having the ongoing pandemic using her ventolin when very sobnow has a obvious bronchitis exacerbati onalbutero l nebulizer Allergic rhinitis 893483 04 J30.9 still a problem with her rhinnits despite her otc meds but will restart zyrtec [id number] Noel Kaur [facility] Internal Medicine [address] [facility] [address],[place] [address] 01/01/2024 10:17:51 01/01/2024 12:05:07 Adult health examination 883394131 Z00.00 here and doing awesome and feels great Screening for cardiovascular system disease 527475867 Z13.6 Screening for malignant neoplasm of colon 795679291 Z12.11 REFUSED TO GET COLONOSCOP Y AND SHE WILL CONSIDER DOING THE COLOGUARD Screening for osteoporosis 346829768 Z13.820 refuses Screening mammography 24 627523 Z12.31 refuses Chronic ob structive pulmonary disease 98054251 J41.0 still smoking and is still not interested in quitting despite my discussion despite having the ongoing pandemic using her ventolin when very sobnow has a obvious bronchitis exacerbati onalbutero l nebulizer Essential hypertension 14022463 I10 stable at home, relates doing well and tolerates meds Depression screening 171 894237 Z13.31 negative Tobacco de pendence syndrome 92638849 F17.200 discussed in detail pt has cut way down from years past but is not interested in stopping despite my warnings Health Concerns Section Related Observation LastModified by Organization Detai ls LastModified Time None Recorded Concern Status LastModified by Organization Details LastModified Time None Recorded Advance Directives Directive None Recorded Payers Encounter Date Sequence Insurance Name Policy Number Policy Ibarra Covered Member ID Ibarra Member ID Guarantor Name 11/18/2022 2 [place] [employer] Linda M Biladeau [id number] Linda Biladeau 11/18/2022 1 [facility] (MEDICARE REPLACEMENT/A DVANTAGE - PPO) [id number] Linda M Biladeau [id number] Linda Biladeau 05/10/2023 2 [place] [employer] Linda M Biladeau [id number] Linda Biladeau 05/10/2023 1 [facility] (MEDICARE REPLACEMENT/A DVANTAGE - PPO) [id number] Linda M Biladeau [id number] Linda Biladeau 2023 2 [place] N[employer] Linda M Biladeau [id number] Linda Biladeau 2023 1 [facility] (MEDICARE REPLACEMENT/A DVANTAGE - PPO) [id number] Linda M Biladeau [id number] Linda Biladeau 01/01/2024 2 [place] [employer] Linda M Biladeau [id number] Linda Biladeau 01/01/2024 1 [facility] (MEDICARE REPLACEMENT/A DVANTAGE - PPO) [id number] Linda M Biladeau [id number] Linda Biladeau Notes Date Note Type Note Provider Name and Address Organization Details Recorded Time 3 text/htm l Care Management - HypertensionReported bypatient.Self Care:not under emotional stress Severity:symptoms are improving; does not interfere with daily activities Associated Symptoms:no dizziness; no lightheadedness; no chest pain; no shortness of breath; no palpitations; no edema; no calf muscle cramps; no blurred vision; no confusion; no headaches; no fatigueNotes:right knee is sore at times wearing a knee brace here for rechk and is doing okfeels wellsleep is okbut is not taking the quietapine Noel Kaur, DO [address] [place], [address], [facility] 11/18/2022 10:23:43 4 text/htm l Care Management - HypertensionReported bypatient.Self Care:not under emotional stress Severity:symptoms are improving; does not interfere with daily activities Associated Symptoms:no dizziness; no lightheadedness; no chest pain; no shortness of breath; no palpitations; no edema; no calf muscle cramps; no blurred vision; no confusion; no headaches; no fatigue patient is evaluated via tele/video assessment per patient consentduring current pandemic discussed results of her bladder US and that it was very good with post void only 50mlbut relates the oxybut caused her to retain fluids Noel Kaur, [address] [place] [address], [address], [facility] Medicine 05/10/2023 11:22:27 4 text/htm l Care Management - HypertensionReported bypatient.Self Care:not under emotional stress Severity:symptoms are improving; does not interfere with daily activities Associated Symptoms:no dizziness; no lightheadedness; no chest pain; no shortness of breath; no palpitations; no edema; no calf muscle cramps; no blurred vision; no confusion; no headaches; no fatigue here for rechk and states is feeling goodstates has some pnd and occ scratchy sore throat for monthsrecc she try the cetirizine again and have her let us know if not helpingconstipation gone with metamucil Noel Kaur DO [address] [place], [address], [facility] 2023 10:52:54 4 text/htm l Medicare Annual Wellness VisitReported bypatient.Diet and Nutrition:healthy diet Fracture Risk:no history of fractures; no recent explained fracture; no sudden unexplained fractures; no previous musculoskeletal injuries Physical Activity:exercises on a regular basis; recent increase in physical activity; good physical condition Depression Risk:never feels sad, empty, or tearful; no loss of interest in activities; no significant changes in weight; no sleep disturbances or insomnia; no agitation; no loss of energy; no feelings of worthlessness or guilt; no thoughts of suicide; no history of depression; no history of mood disorders Orientation:no disorientation to time; no disorientation to date; no disorientation to place Concentration and Memory:no decreased concentrating ability; no memory lapses or loss; does not forget words Speech/Motor difficulties:no speech difficulties; no difficulty expressing formulated concepts; no difficulty with fine manipulative tasks; no difficulty writing/copying; no slowed reaction time; does not knock things over when trying to pick them up Hearing:no loss of hearing Vision:no vision problems Activities of Daily Living:able to bathe with limited or no assistance; able to contol urination and bowels; able to dress with limited or no assistance; able to feed self with limited or no assistance; able to get out of chair or bed with limited or no assistance; able to groom with limited or no assistance; able to toilet with limited or no assistance Instrumental Activities of Daily Living:able to do house work with limited or no assistance; able to grocery shop with limited or no assistance; able to manage medications with limited or no assistance; able to manage money with limited or no assistance; able to prepare meals with limited or no assistance; able to use the phone with limited or no assistance Falls Risk Assessment:no frequent falls while walking; no fall in the past year; no fall since last visit; no dizziness/vertigo Home Safety:no unsafe leeann hazzards; no unsafe stairs; no unsafe gas appliances; working smoke/CO detectors; wears protective head gear for biking/high velocity; use of seatbelts; practicing 'safer sex'; no vision or hearing loss while driving; no fire arms; has hand bars in the bathroom/shower; good lighting in the home Noel Kaur, DO [address] [facility], [place], [address], [facility] 01/01/2024 11:01:11 OBGyn Episode No OBEpisode recorded.
--- OUTSIDE RECORDS SUMMARY | 2024-06-17 15:36 | XMS_ITS | Encounter Summary ---
Author Organization [employer] Address [address] [place] [address] [address] [place] [address] Care Team Providers Care Forging Machine Hand Name Role Phone PcpTristian Unassigned Primary Care Provider U navailable Encounter Details Date Type Department Care Team (Latest Contact Info) Description 05/28/2019 Abstract [facility] CONVERSIONS Dental, Provider, DDS Social [...] 08/14/2024 12:00 PM EDT Office Visit [facility] Dental [address] [place] [address] Yuli Ramirez LLD [address] [place] [address] documented as of this encounter Visit Diagnoses Not on filedocumented in this encounter Care Teams Forging Machine Hand Relationship Specialty Start Date End Date PcpTristianssusha PCP - General Family Medicine 09/05/22 documented as of this encounter
--- OUTSIDE RECORDS SUMMARY | 2024-06-17 15:36 | XMS_ITS | Encounter Summary ---
Author Organization [email or web address] Address [address] [place] [address] [address] [place] [address] Care Team Providers Care Remote Sensing Advisor Name Role Phone PcpTristian Unassigned Primary Care Provider U navailable Encounter Details Date Type Department Care Team (Latest Contact Info) Description 09/28/2020 Abstract [facility] CONVERSIONS Dental, Provider, DDS Social [...] Description 08/14/2024 12:00 PM EDT Office Visit [place] [address] [place] [address] Yuli Ramirez LLD [address] [place] [address] documented as of this encounter Visit Diagnoses Not on filedocumented in this encounter Care Teams Remote Sensing Advisor Relationship Specialty Start Date End Date PcpTristianssusha PCP - General Family Medicine 09/05/22 documented as of this encounter
[2024-06-17 18:17] LABS: Appearance Urine Cloudy; Color Urine Yellow; Glucose Urine UA Negative (Negative); Leukocyte Esterase Urine Large (3+) (Negative); Nitrite Urine Negative (Negative); PH 6.5 (5.0-9.0); Specific Gravity - Urine <= 1.005 (1.005-1.025); UMIC TRIGGER UACC YES; Urine Blood Small (1+) (Negative); Urine Ketones Negative (Negative); Urine Protein Negative (Neg-Trace)
[2024-06-17 18:51] LABS: Bacteria Urine 1+ (None Seen); Hyaline Casts Urine 0-2 /LPF (0-2); Squamous Epithelial Cell Urine 0-2 /HPF (0-2); UACC Culture Trigger YES; WBC Clumps Urine Present; WBC Urine >50 /HPF (0-5)
== END 2024-06-17 14:15 | disposition home or self-care (01) ==
LOC: HO.MANLDS 14:14
PROVIDERS: Visit Provider Internal Medicine
DX: R30.0 Dysuria (principal)
CPT/HCPCS: 81001; 87086; 87088; 87186

== ENCOUNTER 2024-07-02 08:46 | Outpatient (REF) | payer OTHER, SELFPAY ==
--- OUTSIDE RECORDS SUMMARY | 2024-07-02 09:24 | XMS_ITS | Data Portability ---
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) MDM MODERATE MUST MEET 2 OUT OF [...] EACH ELEMENT THAT IS COVERED Not available 06/17/2024 13:57:04 Plan of Treatment Reminders Order Date Submit Date Provider Last Modified By Organization Details Last Modified Time Details Appointments MEDICARE ANNUAL WELLNESS 2024 10:00A M DR KAUR Not available Not available Not available Lab urinalysi s complete, reflex culture 2024 025 [facility], [address] [place] [address], [id number], 06/18/2024 12:56:37 CMP, serum or plasma 2024 025 [facility], [address] [place] [address], [place], [address], 06/17/2024 14:26:35 CBC 2024 025 [facility], [address] [place] [address], [address], 06/17/2024 14:26:35 vitamin D, 25-hydrox y, total, serum 2024 025 [facility], [address] [place] [address], [id number], 06/17/2024 14:26:35 lipid panel, blood 2024 025 [facility], [address] [place] [address], [address], 06/17/2024 14:26:35 lipid panel, blood 2023 024 [facility], [address] [place] [address], [address], 01/01/2024 10:59:37 hemoglobi n, gastroint estinal, stool 2023 024 [facility], [address] [place] [address], [address], 01/01/2024 10:59:37 CMP, serum or plasma 2023 024 [facility], [address] [place] [address], [address], 01/01/2024 10:59:37 CBC w/ auto diff 2023 024 [facility], [address] [place] [address], [address], 01/01/2024 10:59:38 vitamin D, 25-hydrox y, total, serum 2023 024 [facility], [address] [place] [address], [address], 01/01/2024 10:59:38 Referral None recorded. Procedures None recorded. Surgeries None recorded. Imaging None recorded. Medication Orders triamtere ne 37.5 mg-hydroc hlorothia zide 25 mg tablet 2023 024 [id number], [address], [place], [phone], 05/10/2023 11:21:57 Patient TargetsNo targets recorded. Patient Instructions Encounter Date Encounter Id Patient Instructions Last Modified By Organization Details Last Modified Time 11/18/2022 [id number] prediabetes: car e instructions Not available 11/18/2022 10:23:14 high blood pressure: care instructions Not available 11/18/2022 10:23:15 learning about high blood pressure Not available 11/18/2022 10:23:15 chronic obstructive pulmonary disease (COPD): care instructions Not available 11/18/2022 10:23:15 learning about copd and how to prevent lung infections Not available 11/18/2022 10:23:15 05/10/2023 [id number] leg and ankle edema: care instructions Not available 05/10/2023 11:21:51 2023 [id number] allergies: care instructions Not available 2023 10:50:58 managing your allergies: care instructions Not available 2023 10:50:58 01/01/2024 [id number] pulse oximetry* Not available 01/01/2024 10:58:20 advance care planning: care instructions Not available 01/01/2024 10:58:15 Discussed and explained advance directives such as standard forms to the {{patient caregiv er patient and caregiver}}. Face to face discussion lasted for a duration of ___ minutes. [email or web address] Not available 12/27/2023 14:04:59 06/17/2024 [id number] painful urinatio n (dysuria): care instructions Not available 06/17/2024 14:07:54 chronic obstructive pulmonary disease (COPD): care instructions Not available 06/17/2024 14:00:27 learning about copd and how to prevent lung infections Not available 06/17/2024 14:00:27 Reason for Referral None Reported. Results Created Date Observation Date Name Description Value Unit Range Abnormal Flag Note LastModifiedBy Organization Detail LastModifiedTime 01/01/20 24 01/01/2024 pulse oxime try* Result 99 Not Available [facility] [address] [facility] [address], [place], [address], 12/27/2023 14:06:51 04/07/20 23 04/07/2023 , ligia er No observ ation record ed. [email or web address] [facility] [address] [facility], [place], [address], 04/11/2023 08:39:45 Result Notes None recorded. Problems Name Problem SNOMED Code Status Onset Date Resolution Date Notes Provider Name and Address Organization Details Recorded Time Allergic rhinitis 10947192 Active 2018 Not Available [facility] 3 11:56:27 Osteopeni a 564891284 Active 2019 Not Available [facility] 3 11:56:27 Bilateral cataracts 86792924 Active 2020 Not Available [facility] 3 11:56:27 Hyperkera totic actinic keratosis 600177298 Active 2021 Not Available [facility] 3 11:56:27 Overactiv e urinary bladder 775596324 Active 2021 Not Available [facility] 3 11:56:27 Schizophr enia 96160842 Active 2022 Not Available [facility] 3 11:56:27 Acute exacerbat ion of chronic obstructi ve pulmonary disease 768480935 Active 2022 Not Available [facility] 3 11:56:27 Dysuria 35805954 Active 2022 Not Available [facility] 3 11:56:27 Acute urinary tract infection 059330254 Active 2022 DEIRDRE PEREZ [address] [facility], [place], [address], [place] [facility] 3 09:20:31 Osteoarth ritis of knee 285640932 Active 2022 Noel Kaur, DO [address] [place] [address], [address], [facility] 3 14:10:09 Edema of lower extremity 269509792 Active 2023 Noel Kaur, DO [address] [place] [address], [address], [facility] 4 11:19:45 Essential hypertens ion 57671227 Active 2017 Not Available [facility] 3 11:56:27 Chronic obstructi ve pulmonary disease 59447010 Active 2017 Not Available [facility] 3 11:56:27 Degenerat ion of lumbar intervert ebral disc 31830547 Active 2017 Not Available [facility] 3 11:56:27 Osteoarth ritis 084959496 Active 2017 Not Available [facility] 3 11:56:27 Impaired fasting glycemia 408676890 Active 2017 Not Available [facility] 3 11:56:27 Tobacco dependenc e syndrome 75021980 Active 2023 Noel Kaur DO [address] [place] [address], [address], [facility] 4 10:54:41 Acquired trigger finger of right middle finger 853328798853 105 Active 2023 Noel Kaur DO [address] [place] [address], [address], [facility] 4 13:06:58 Notes:Some problems listed i n Document: #[id number] could not be added to this patient's chart. Please review this document and add these problems to the patient's chart manually as needed. Problem Notes None recorded. Procedures Surgical History None recorded. Imaging Results Imaging Date Name Status LastModified by Organiz ation Details LastModified Time 04/07/2023 US, bladder completed [email or web address] [address], [address], 04/11/2023 08:39:45 Procedure Notes None recorded. Medical Equipment None Reported. Allergies Allergen ID Allergen Name Allergen Category Reaction Reaction Severity Criticality Documentation Date Start Date Code Code System Note Provider Name and Address Organization Details Recorded Time 4538 Bactrim medicatio n wheezing moderate Not available 10/09/2020 93994 9 RxNorm DEIRDRE PEREZ [address] [place], [address], [facility] 1 14:23:51 873 codeine medicatio n Not available Not available Not available 08/16/2017 2670 RxNorm Gingeryuko Stovall[facility] 8 08:16:48 Medications Name Sig Start Date Stop Date Status Note LastModified by Organization Details LastModified Time amoxicillin 500 mg capsule TAKE 4 CAPSULES BY MOUTH 1 TIME 06/17 completed Not Available Not Available Not Available clotrimazol e 10 mg ryna 01/16 completed Not Available Not Available Not [...] azole 800 mg-trimetho prim 160 mg tablet TAKE 1 TABLET BY MOUTH TWICE DAILY active Not Available Not Available No t Available tramadol 50 mg tablet TAKE 2 TABLETS [...] 1 PUFF INTO THE LUNGS EVERY DAY 2024 active Not Available Not Available Not Avai lable Shingrix (PF) 50 mcg/0.5 mL intramuscul ar suspension, kit 07/02 completed Not Available Not Available Not Available Vitals Date Recorded Body height Body mass index (BMI) Body weight Heart rate Oxygen saturation Oxygen saturation in Arterial blood by Pulse oximetry Systolic blood pressure Diastolic blood pressure Provider Name and Address Organization Details Last Updated DateTime 3 157.48 cm 28 kg/m2 61056.6 3 g 62 /min 98 % 98 % 148 mm[Hg] 80 mm[Hg] Edilma Kline [facility] 3 10:14:41 Date Recorded Body height Body mass index (BMI) Body weight Heart rate Oxygen saturation Oxygen saturation in Arterial blood by Pulse oximetry Systolic blood pressure Diastolic blood pressure Provider Name and Address Organization Details Last Updated DateTime 4 157.48 cm 27.4 kg/m2 30507.8 6 g 65 /min 97 % 97 % 142 mm[Hg] 68 mm[Hg] Noel Kaur, DO [address] [place], [address], [facility] 4 10:27:48 Date Recorded Body height Body mass index (BMI) Body weight Heart rate Oxygen saturation Oxygen saturation in Arterial blood by Pulse oximetry Systolic blood pressure Diastolic blood pressure Provider Name and Address Organization Details Last Updated DateTime 4 160.02 cm 24.9 kg/m2 95101.4 5 g 66 /min 99 % 99 % 134 mm[Hg] 70 mm[Hg] Joey Wheeler [facility] 4 10:36:09 Date Recorded Body height Body mass index (BMI) Body weight Heart rate Oxygen saturation Oxygen saturation in Arterial blood by Pulse oximetry Systolic blood pressure Diastolic blood pressure Provider Name and Address Organization Details Last Updated DateTime 5 160.02 cm 25.9 kg/m2 78102.4 9 g 64 /min 98 % 98 % 128 mm[Hg] 74 mm[Hg] Joey Wheeler [facility] 5 13:37:39 Social History Question Answer Notes LastModified by Organizat ion Details LastModified Time Tobacco Smoking Status Current [facility] 12/18/2017 09:58:45 What Was The Date Of [...] mcg/0.3 mL dose 1 completed Not Available [facility] 09/14/2022 21:09:49 COVID-19, mRNA, LNP-S, PF, 30 mcg/0.3 mL dose 1 completed Not Available [facility] 09/14/2022 21:09:49 COVID-19, mRNA, LNP-S, PF, 30 mcg/0.3 mL dose 2 completed Not Available [facility] 09/14/2022 21:09:49 COVID-19, mRNA, LNP-S, PF, 30 mcg/0.3 mL dose 1 completed Not Available [facility] 09/14/2022 21:09:49 influenza, unspecified formulation 2 completed Not Available [facility] 09/14/2022 21:09:49 RSV, mRNA, injectable, PF 3 completed Joey chambers [facility] 01/19/2024 14:53:20 zoster live 8 completed Not Available [facility] 09/14/2022 21:09:49 Tdap 8 completed Not Available [facility] 09/14/2022 21:09:49 pneumococcal polysaccharide PPV23 9 completed Not Available [facility] 09/14/2022 21:09:49 Influenza, split virus, quadrivalent, preservative 9 completed Not Available [facility] 09/14/2022 21:09:49 Influenza, split virus, quadrivalent, preservative 0 completed Not Available [facility] 09/14/2022 21:09:49 Past Encounters Encounter ID Performer Location Encounter Start Date Encounter Closed Date Diagnosis/Indication Diagnosis SNOMED-CT Code Diagnosis ICD10 Code Diagnosis Note [id number] Marla Mohamud NP, S [facility] [address] [facility],[place] [address] 08/16/2017 10:13:56 08/18/2017 08:12:43 Moderate chronic obstructive pulmonary disease 716952825 J44.9 continue current therapy Seasonal a llergic rhinitis 329960016 J30.2 Acute sinusitis 63996284 J01.90 given z-pack, to call if no better [id number] Noel Kaur DO [facility] [address] [facility],[place] [address] 12/18/2017 09:55:26 12/18/2017 10:29:12 Chronic obstructive pulmonary disease 39976338 J44.9 still smoking and is not interested in quitting despite my discussion Essential hypertension 60584406 I10 stable at home, relates doing well and tolerates meds Impaired f asting glycemia 857865056 R73.01 will need some lab work including fasting [id number] Noel Kaur [facility] [address] [facility] [address] [address] 07/02/2018 09:24:16 07/02/2018 11:26:16 Essential hypertension 12721805 I10 stable at home, relates doing well and tolerates meds Impaired f asting glycemia 063724212 R73.01 will need some lab work including fasting Chronic ob structive pulmonary disease 41443073 J44.9 still smoking and is not interested in quitting despite my discussion using her ventolin when very sob Allergic rhinitis 742450 04 J30.9 still a problem with her rhinnits despite her otc meds [id number] Noel Kaur [facility] [address] [facility],[place] [address] 08/13/2018 13:41:07 08/13/2018 14:36:58 Chronic obstructive pulmonary disease 50966983 J44.9 still smoking and is not interested in quitting despite my discussion using her ventolin when very sob Essential hypertension 77016611 I10 stable at home, relates doing well and tolerates meds Osteoarthritis 172811812 M19.90 will cont to check with out[pt care will try to use meloxicam [id number] Noel Kaur [facility] [address] [facility],[place] [address] [place] [facility] [place] [address] 12/12/2018 13:44:57 12/12/2018 14:19:08 Chronic obstructive pulmonary disease 88486994 J44.9 still smoking and is not interested in quitting despite my discussion using her ventolin when very sob Impaired f asting glycemia 942178003 R73.01 will need some lab work including fasting Essential hypertension 25752444 I10 stable at home, relates doing well and tolerates meds Allergic rhinitis 457488 04 J30.9 still a problem with her rhinnits despite her otc meds but will cont flonase and zyrtec Osteoarthritis 118260653 M19.90 will cont to check with out[pt care will try to use meloxicam prn also is going to try collagen peptides (bovine) Pruritic rash 41543041 L 28.2 [id number] Noel AnnaleeBrooke Kaur [facility] [address] [facility],[place] [address] 04/24/2019 10:56:38 04/24/2019 11:35:20 Hepatitis C screening 761283901 Z11.59 Osteopenia 133407728 M85 .80 will get an bmd Essential hypertension 51779337 I10 stable at home, relates doing well and tolerates meds Impaired f asting glycemia 148969826 R73.01 will need some lab work including fasting [id number] Noel MantillaBrooke Kaur [facility] [address] [facility], [place] [address] 08/14/2019 10:23:32 08/14/2019 11:04:14 Chronic obstructive pulmonary disease 30406404 J44.9 still smoking and is not interested in quitting despite my discussion despite having the ongoing pandemic using her ventolin when very sob Lateral ep icondylitis of left humerus 3619444326 99170 M77.12 will need to treat conservati vely will need to wear a brace and we showed her which type to use Bursitis o f olecranon of left elbow 4382352681 80407 M70.22 resolved and well healed [id number] Noel Ruano Rehana [facility] [address] [facility], [place] [address] 09/25/2019 08:59:18 09/25/2019 10:59:09 Chronic obstructive pulmonary disease 33086995 J44.9 frustratin gly she is still smoking and is still not interested in quitting despite my discussion despite having the ongoing pandemic using her ventolin when very sob Impaired f asting glycemia 989765993 R73.01 will need some lab work including fasting Essential hypertension 72238068 I10 stable at home, relates doing well and tolerates meds Cellulitis of left elbow 8529422036 7892073 L03.114 Osteoarthritis 414780597 M19.90 will cont to check with out[pt care will try to use meloxicam prn also is going to try collagen peptides (bovine) [id number] DEIRDRE PEREZ [facility] [address] [facility] [address] [address] 11/04/2019 14:52:46 11/04/2019 15:42:10 Chronic obstructive pulmonary disease 77476532 J44.9 stable Cellulitis of upper limb 447833712 L03.119 will treat again with Keflex [id number] DEIRDRE PEREZ [facility] [address] [facility],[place] [address] 11/15/2019 10:54:54 11/15/2019 11:56:59 Shoulder pain 43789869 M25.519 will check shoulder for possible AC joint pain Pain in right knee 58491 78943 12268 M25.561 the patient has a medial mencius tear hx documented the patient states she is having medial joint line pain moving into the proximal tibia has been very active which may have contribute d Medial epicondylitis 532 61054 M77.02 the patient would like to continue conservati ve therapy with brace and ibuprofen does not want to see ortho for shot/injec tion Cellulitis 910311471 L03 .90 resolved [id number] Noel Kaur DO [facility] [address] [facility],[place] [address] 01/17/2020 10:04:46 01/17/2020 11:28:32 Essential hypertension 38568966 I10 stable at home, relates doing well and tolerates meds Impaired f asting glycemia 932224597 R73.01 will need some lab work including fasting but is doing great overall with exercise and wgt loss Chronic ob structive pulmonary disease 79425834 J44.9 frustratin gly she is still smoking and is still not interested in quitting despite my discussion despite having the ongoing pandemic using her ventolin when very sob Osteopenia 726812063 M85 .80 and is stable and without any worsening per recent bmd in jun Antibiotic prophylaxis indicated 028362905 Z78.9 will need for dental procedure [id number] Noel Kaur DO [facility] [address] [facility],[place] [address] 07/13/2020 11:31:29 07/13/2020 12:50:06 Chronic obstructive pulmonary disease 12858020 J44.9 frustratin gly she is still smoking and is still not interested in quitting despite my discussion despite having the ongoing pandemic using her ventolin when very sob Impaired f asting glycemia 824662959 R73.01 will need some lab work including fasting but is doing great overall with exercise and wgt loss Essential hypertension 97788230 I10 stable at home, relates doing well and tolerates meds Acute urin jeremi tract infection 155210082 N39.0 ua dip is negative Degenerati on of lumbar intervertebral disc 65317741 M51.36 doing ok taking her supplement s and is staying active Candidiasis of vagina 72 986285 B37.3 Bursitis o f olecranon of left elbow 6626386866 05292 M70.22 resolved and well healed [id number] DEIRDRE PEREZ [facility] [address] [facility] [address],[place] [address] 10/09/2020 14:04:24 10/09/2020 14:40:21 Soft tissue lesion of elbow region 025105778 M79.9 the patient and I will fu after contacting medical records Essential hypertension 17425112 I10 BP excellent Chronic ob structive pulmonary disease 29524026 J44.9 stable [id number] Noel Kaur DO [facility] [address] [facility] [address],[place] [address] 11/16/2020 11:34:49 11/16/2020 12:18:45 Chronic obstructive pulmonary disease 99116012 J44.9 frustratin gly she is still smoking and is still not interested in quitting despite my discussion despite having the ongoing pandemic using her ventolin when very sob Impaired f asting glycemia 807913439 R73.01 will need some lab work including fasting but is doing great overall with exercise and wgt loss Essential hypertension 84669968 I10 stable at home, relates doing well and tolerates meds Bilateral cataracts 9572 2003 H26.9 Bilateral osteoarthritis of knees 6809682225 90072 M17.0 Pain of le ft elbow joint 7030963469 7930179 M25.522 [id number] DEIRDRE PEREZ [facility] [address] [facility] [address] [address] 01/06/2021 09:55:18 01/06/2021 11:30:55 Pre-surgery evaluation 655878724 Z01.818 The patient was seen in the office today for pre-op evaluation . All medical conditions on patient's problem list were addressed and are currently stable, no interventi on needed at this time. Based on history and physical performed, the patient is cleared for surgery. Essential hypertension 09572448 I10 BP excellent today recheck in both arms was 122/83 R arm and 124/80 L armwell controlled , no interventi on needed Chronic ob structive pulmonary disease 15773582 J44.9 stable, no interventi on needed [id number] Noel Kaur [facility] [address] [facility],[place] [address] 02/22/2021 11:13:00 02/22/2021 14:58:54 Chronic obstructive pulmonary disease 82087612 J44.9 frustratin gly she is still smoking and is still not interested in quitting despite my discussion despite having the ongoing pandemic using her ventolin when very sob Impaired f asting glycemia 535565469 R73.01 will need some lab work including fasting but is doing great overall with exercise and wgt loss Essential hypertension 05160344 I10 stable at home, relates doing well and tolerates meds Pain of le ft elbow joint 2103593579 8826872 M25.522 has a mass on this area a nodule and is quite irritated Nodule of skin of upper limb 744346663 R22.32 nodule is irritated and uncomforta ble [id number] Noel Kaur [facility] [address] [facility],[place] [address] 08/30/2021 10:58:14 08/30/2021 12:06:37 Chronic obstructive pulmonary disease 06334803 J44.9 frustratin gly she is still smoking and is still not interested in quitting despite my discussion despite having the ongoing pandemic using her ventolin when very sobstates will consider using BREO Impaired f asting glycemia 751705862 R73.01 will need some lab work including fasting but is doing great overall with exercise and wgt loss Essential hypertension 08546037 I10 stable at home, relates doing well and tolerates meds Tobacco user 302878504 Z 72.0 patient cutting back relates that she is thinking of vaping Hyperkerat otic actinic keratosis 078301917 L57.0 cont to follow the dermatol Screening for malignant neoplasm of colon 583404739 Z12.11 REFUSED TO GET COLONOSCOP Y AND SHE WILL CONSIDER DOING THE COLOGUARD AND GET BACK [id number] Noel Kaur DO [facility] [address] [facility] [address] 03/02/2022 10:11:28 03/02/2022 11:45:47 Chronic obstructive pulmonary disease 54994155 J44.9 frustratin gly she is still smoking and is still not interested in quitting despite my discussion despite having the ongoing pandemic using her ventolin when very sob Impaired f asting glycemia 229748672 R73.01 will need some lab work including fasting but is doing great overall with exercise and wgt loss Essential hypertension 32308533 I10 stable at home, relates doing well and tolerates meds Osteoarthritis 896361299 M19.90 will cont to check with out[pt care will try to use meloxicam prn also is going to try collagen peptides (bovine) Advance care planning 71 9947188 Z71.89 discussed Screening for malignant neoplasm of colon 155604681 Z12.11 REFUSED TO GET COLONOSCOP Y AND SHE WILL CONSIDER DOING THE COLOGUARD AND GET BACK Active or passive immunization 188986190 Z23 patient advised she is due for flu shot, pneu 13 & shingles Degenerati on of lumbar intervertebral disc 76358272 M51.36 doing ok taking her supplement s and is staying active [id number] DEIRDRE PEREZ [facility] [address] [facility],[place] [address] 07/04/2022 15:01:43 07/04/2022 15:51:37 Schizophrenia 58970575 F20.1 will need to discuss case with Ness a new health care proxy up to date according to KATLIN whom talked to efra armijo have to sort through this with leatha and SAPPHIRE as the patient cannot make informed decisions currently Chronic ob structive pulmonary disease 06707979 J41.0 may have an exacerbati onakll call back on monday with an update [id number] Noel Kaur DO [facility] [address] [facility],[place] [address] 07/11/2022 11:37:04 07/11/2022 14:49:34 Schizophrenia 18697076 F20.1 she is doing well with the seroquel 100 hs as well as mirtazapin e hs toosleep is goodstill having some issues with paranoimarquita d this is especially noted at hstakes only seroquel at night with mirtazapin e will increase to 30mg due to some of her issues with paranoia Chronic ob structive pulmonary disease 27101155 J41.0 frustratin gly she is still smoking and is still not interested in quitting despite my discussion despite having the ongoing pandemic using her ventolin when very sobnow has a obvious bronchitis exacerbati onalbutero l nebulizer Advance care planning 71 5407422 Z71.89 discussed in detail Screening for malignant neoplasm of colon 677402053 Z12.11 REFUSED TO GET COLONOSCOP Y AND SHE WILL CONSIDER DOING THE COLOGUARD AND GET BACK Screening mammography 24 218220 Z12.31 Osteoarthr itis of right knee joint 1149790737 55965 M17.11 [id number] Noel Kaur DO [facility] [address] [facility] [place],Margarita [place] [address] 08/19/2022 10:03:49 08/19/2022 11:55:44 Essential hypertension 94164421 I10 stable at home, relates doing well and tolerates meds Schizophrenia 07055874 F 20.1 has stopped the seroquel 100 hs on her own , states the mirtazapin e is not working as well helping her sleepsleep is her issue now long discussion re quietapine no issues with paranoiawe have convinced her to take the 100mg seroquel and use it as a sleep med [id number] Noel Kaur DO [facility] [address] [facility] [place] [address] 11/18/2022 10:08:55 11/18/2022 10:47:14 Chronic obstructive pulmonary disease 45787296 J41.0 still smoking and is still not interested in quitting despite my discussion despite having the ongoing pandemic using her ventolin when very sobnow has a obvious bronchitis exacerbati onalbutero l nebulizer Essential hypertension 51776087 I10 stable at home, relates doing well and tolerates meds Impaired f asting glycemia 888389311 R73.01 will need some lab work including fasting but is doing great overall with exercise and wgt loss [id number] Noel Kaur [facility] [address] [facility],[place] [address] ide[facility] [place] [address] 05/10/2023 07:51:39 05/10/2023 14:05:08 Chronic obstructive pulmonary disease 77244626 J41.0 still smoking and is still not interested in quitting despite my discussion despite having the ongoing pandemic using her ventolin when very sobnow has a obvious bronchitis exacerbati onalbutero l nebulizer Essential hypertension 62832213 I10 stable at home, relates doing well and tolerates meds Schizophrenia 35219461 F 20.1 PRIOR:has stopped the seroquel 100 hs on her own , states the mirtazapin e is not working as well helping her sleepsleep is her issue now long discussion re quietapine no issues with paranoiawe have convinced her to take the 100mg seroquel and use it as a sleep med Edema of l ower extremity 049574858 R60.0 [id number] Noel Kaur [facility] [address] [facility],[place] [address] 2023 08:06:13 07/07/2023 10:30:40 Edema of lower extremity 477938960 R60.0 no issues right now Chronic ob structive pulmonary disease 03980245 J41.0 still smoking and is still not interested in quitting despite my discussion despite having the ongoing pandemic using her ventolin when very sobnow has a obvious bronchitis exacerbati onalbutero l nebulizer Allergic rhinitis 809856 04 J30.9 still a problem with her rhinnits despite her otc meds but will restart zyrtec [id number] Noel Kaur [facility] [address] [facility],[place] [address] 01/01/2024 10:17:51 01/01/2024 12:05:07 Adult health examination 861283292 Z00.00 here and doing awesome and feels great Screening for cardiovascular system disease 012417379 Z13.6 Screening for malignant neoplasm of colon 041031388 Z12.11 REFUSED TO GET COLONOSCOP Y AND SHE WILL CONSIDER DOING THE COLOGUARD Screening for osteoporosis 916276732 Z13.820 refuses Screening mammography 24 654897 Z12.31 refuses Chronic ob structive pulmonary disease 09599980 J41.0 still smoking and is still not interested in quitting despite my discussion despite having the ongoing pandemic using her ventolin when very sobnow has a obvious bronchitis exacerbati onalbutero l nebulizer Essential hypertension 41439138 I10 stable at home, relates doing well and tolerates meds Depression screening 171 533232 Z13.31 negative Tobacco de pendence syndrome 55472590 F17.200 discussed in detail pt has cut way down from years past but is not interested in stopping despite my warnings [id number] Noel Kaur, [facility] [address] [facility],[place] [address] 06/17/2024 13:29:32 06/17/2024 14:22:03 Essential hypertension 43485275 I10 stable at home, relates doing well and tolerates meds Edema of l ower extremity 133591944 R60.0 no issues right nowstable Chronic ob structive pulmonary disease 18902397 J41.0 still smoking and is still not interested in quitting despite my discussion despite having the ongoing pandemic using her ventolin when very sobnow has a obvious bronchitis exacerbati onalbutero l nebulizer O2 sat 98% Dysuria 67988278 R30.0 Health Concerns Section Related Observation LastModified by Organization Detai ls LastModified Time None Recorded Concern Status LastModified by Organization Details LastModified Time None Recorded Advance Directives Directive None Recorded Payers Encounter Date Sequence Insurance Name Policy Number Policy Ibarra Covered Member ID Ibarra Member ID Guarantor Name 11/18/2022 2 [place] [employer] Linda Steward [id number] Linda Steward 11/18/2022 1 [facility] (MEDICARE REPLACEMENT/A DVANTAGE - PPO) [id number] Linda Steward [id number] Linda Steward 05/10/2023 2 [place] [employer] Linda Quezadaadeau [id number] Linda Biladeau 05/10/2023 1 [facility] (MEDICARE REPLACEMENT/A DVANTAGE - PPO) [id number] Linda Chavarria Biladeau [id number] Linda Biladeau 2023 2 [place]: [facility] Linda M Biladeau [id number] Linda Biladeau 2023 1 [facility] (MEDICARE REPLACEMENT/A DVANTAGE - PPO) [id number] Linda Chavarria Biladeau [id number] Linda Biladeau 01/01/2024 2 [place] [facility] Linda Chavarria Biladeau [id number] Linda Biladeau 01/01/2024 1 [facility] (MEDICARE REPLACEMENT/A DVANTAGE - PPO) [id number] Linda Chavarria Biladeau [id number] Linda Biladeau 06/17/2024 1 [facility] (MEDICARE REPLACEMENT/A DVANTAGE - PPO) [id number] Linda Chavarria Biladeau [id number] Linda Biladeau Notes Date Note Type Note [...] taking the quietapine Noel Kaur, DO [address] [facility], [place], [address], [facility] 11/18/2022 10:23:43 4 text/htm l [...] oxybut caused her to retain fluids Noel Ruano Deysiamaury, DO [address] [place], [address], [facility] 05/10/2023 11:22:27 4 text/htm [...] if not helpingconstipation gone with metamucil Noel Kaur, DO [address] [place], [address], [facility] 2023 10:52:54 4 text/htm l [...] bathroom/shower; good lighting in the home Noel Kaur DO [address] [place], [address], [facility] 01/01/2024 11:01:11 5 text/htm l hands are much better now that she got a itzel inj to the fingershe has done well and not gaining weight over the summerstates that she is not having any cp no sob Noel Kaur DO [address] [place], [address], [facility] 06/17/2024 16:56:54 OBGyn Episode No OBEpisode recorded.
--- OUTSIDE RECORDS SUMMARY | 2024-07-02 09:24 | XMS_ITS | Encounter Summary ---
Author Organization [employer] Address [address] [place] [address] [address] [place] [address] Care Team Providers Care Awning Maker Name Role Phone PcpTristian Unassigned Primary Care [...] Description 08/14/2024 12:00 PM EDT Office Visit [place] [facility] [address] [place] [address] Yuli Ramirez LLD [address] [place] [address] documented as of this encounter Visit Diagnoses Not on filedocumented in this encounter Care Teams Awning Maker Relationship Specialty Start Date End Date PcpTristianssusha PCP - General Family Medicine 09/05/22 documented as of this encounter
--- OUTSIDE RECORDS SUMMARY | 2024-07-02 09:24 | XMS_ITS | Continuity of Care Document ---
Author Organization [place] [facility] Address [address] [facility] [address] [place] [address] Assessment Encounter Date Assessment Date Assessment LastModified by Organization Details LastModified Time 06/17/2024 06/17/2024 [id number] [place] [id number] (EMISSION TECHNICIAN) MDM MODERATE MUST MEET 2 OUT OF [...] urinalysi s complete, reflex culture 2024 025 [facility], [address] [place] [address], [place], [address], 06/18/2024 12:56:37 CMP, serum or plasma 2024 025 [facility], [address] [place], [address], 06/17/2024 14:26:35 CBC 2024 025 [facility], [address] [place] [address], [place], [address], 06/17/2024 14:26:35 vitamin D, 25-hydrox y, total, serum 2024 025 [facility], [address] [facility], [place], [address], 06/17/2024 14:26:35 lipid panel, blood 2024 025 [facility], [place], [address], 06/17/2024 14:26:35 Referral None recorded. Procedures None recorded. Surgeries None recorded. Imaging None recorded. Medication Orders None recorded. Patient TargetsNo targets recorded. Patient Instructions Encounter Date Encounter Id Patient Instructions Last Modified By Organization Details Last Modified Time 06/17/2024 [id number] painful urinatio n (dysuria): care instructions Not available 06/17/2024 14:07:54 chronic obstructive pulmonary disease (COPD): care instructions Not available 06/17/2024 14:00:27 learning about copd and how to prevent lung infections Not available 06/17/2024 14:00:27 Reason for Referral None Reported. Problems Name Problem SNOMED Code Status Onset Date Resolution Date Notes Provider Name and Address Organization Details Recorded Time Allergic rhinitis 99834850 Active 2018 Not Available [facility] 3 11:56:27 Osteopeni a 586270959 Active 2019 Not Available [facility] 3 11:56:27 Bilateral cataracts 35023048 Active 2020 Not Available [facility] 3 11:56:27 Hyperkera totic actinic keratosis 759914679 Active 2021 Not Available [facility] 3 11:56:27 Overactiv e urinary bladder 428132962 Active 2021 Not Available [facility] 3 11:56:27 Schizophr enia 25532099 Active 2022 Not Available [facility] 3 11:56:27 Acute exacerbat ion of chronic obstructi ve pulmonary disease 247071392 Active 2022 Not Available [facility] 3 11:56:27 Dysuria 17147215 Active 2022 Not Available [facility] 3 11:56:27 Acute urinary tract infection 346660186 Active 2022 DEIRDRE PEREZ [address] [place] [address], [address], [facility] 3 09:20:31 Osteoarth ritis of knee 455115630 Active 2022 Noel Kaur DO [address] [place] [address], [address], [facility] 3 14:10:09 Edema of lower extremity 034782399 Active 2023 Noel Kaur DO [address] [place] [address], [address], [facility] 4 11:19:45 Essential hypertens ion 16657579 Active 2017 Not Available [facility] 3 11:56:27 Chronic obstructi ve pulmonary disease 58674929 Active 2017 Not Available [facility] 3 11:56:27 Degenerat ion of lumbar intervert ebral disc 10535431 Active 2017 Not Available [facility] 3 11:56:27 Osteoarth ritis 029856521 Active 2017 Not Available [facility] 3 11:56:27 Impaired fasting glycemia 923425319 Active 2017 Not Available [facility] 3 11:56:27 Tobacco dependenc e syndrome 56589997 Active 2023 Noel Kaur DO [address] [place] [address], [address], [facility] 4 10:54:41 Acquired trigger finger of right middle finger 179529679993 105 Active 2023 Noel Kaur, [address] [place], [address], [facility] Internal [facility] 4 13:06:58 Notes:Some problems listed i n Document: #[id number] could not be added to this patient's chart. Please review this document and add these problems to the patient's chart manually as needed. Problem Notes None recorded. Medical Equipment None Reported. Allergies Allergen ID Allergen Name Allergen Category Reaction Reaction Severity Criticality Documentation Date Start Date Code Code System Note Provider Name and Address Organization Details Recorded Time 4538 Bactrim medicatio n wheezing moderate Not available 10/09/2020 00842 9 RxNorm DEIRDRE PEREZ [address] [place], [address], [facility] 1 14:23:51 873 codeine medicatio n Not available Not available Not available 08/16/2017 2670 [facility] 8 08:16:48 Medications Name Sig Start Date [...] Updated DateTime 5 160.02 cm 25.9 kg/m2 40274.4 9 g 64 /min 98 % 98 % 128 mm[Hg] 74 mm[Hg] [facility] 5 13:37:39 Social History Question Answer Notes LastModified by Organizat ion Details LastModified Time Tobacco Smoking Status Current Some Day Smoker [facility] 12/18/2017 09:58:45 What Was The Date [...] mcg/0.3 mL dose 1 completed Not Available [facility] 09/14/2022 21:09:49 COVID-19, mRNA, LNP-S, PF, 30 mcg/0.3 mL dose 1 completed Not Available [facility] 09/14/2022 21:09:49 COVID-19, mRNA, LNP-S, PF, 30 mcg/0.3 mL dose 2 completed Not Available [facility] 09/14/2022 21:09:49 COVID-19, mRNA, LNP-S, PF, 30 mcg/0.3 mL dose 1 completed Not Available [facility] 09/14/2022 21:09:49 influenza, unspecified formulation 2 completed Not Available [facility] 09/14/2022 21:09:49 RSV, mRNA, injectable, PF 3 completed [facility] De La [facility] 01/19/2024 14:53:20 zoster live 8 completed Not Available [facility] 09/14/2022 21:09:49 Tdap 8 completed Not Available [facility] 09/14/2022 21:09:49 pneumococcal polysaccharide PPV23 9 completed Not Available [facility] 09/14/2022 21:09:49 Influenza, split virus, quadrivalent, preservative 9 completed Not Available [facility] 09/14/2022 21:09:49 Influenza, split virus, quadrivalent, preservative 0 completed Not Available [facility] 09/14/2022 21:09:49 Past Encounters Encounter ID Performer Location Encounter Start Date Encounter Closed Date Diagnosis/Indication Diagnosis SNOMED-CT Code Diagnosis ICD10 Code Diagnosis Note [id number] Noel Kaur DO [facility] [address] [facility],[place] [address] 06/17/2024 13:29:32 06/17/2024 14:22:03 Essential hypertension 30039312 I10 stable at home, relates doing well and tolerates meds Edema of l ower extremity 527846772 R60.0 no issues right nowstable Chronic ob structive pulmonary disease 80028562 J41.0 still smoking and is still not interested in quitting despite my discussion despite having the ongoing pandemic using her ventolin when very sobnow has a obvious bronchitis exacerbati onalbutero l nebulizer O2 sat 98% Dysuria 39380101 R30.0 Health Concerns Section Related Observation LastModified by Organization Detai ls LastModified Time None Recorded Concern Status LastModified by Organization Details LastModified Time None Recorded Payers Encounter Date Sequence Insurance Name Policy Number Policy Ibarra Covered Member ID Ibarra Member ID Guarantor Name 06/17/2024 1 [facility] (MEDICARE REPLACEMENT/A DVANTAGE - PPO) [id number] Linda Steward [id number] Linda Steward Notes Date Note Type Note Provider Name a nd Address Organization Details Recorded Time 06/17/2024 text/html hands are much better now that she got a itzel inj to the fingershe has done well and not gaining weight over the summerstates that she is not having any cp no sob Noel Kaur, [address] [facility], [place], [address], [facility] 06/17/2024 16:56:54 OBGyn Episode No OBEpisode recorded.
--- OUTSIDE RECORDS SUMMARY | 2024-07-02 09:25 | XMS_ITS | Encounter Summary ---
Author Organization [employer] Address [address] [place] [address] [address] [place] [address] Care Team Providers Care Accounting Associate Name Role Phone PcpTristian Unassigned Primary Care [...] 08/14/2024 12:00 PM EDT Office Visit [place] [facility] [address] [place] [address] Yuli Ramirez LLD [address] [place] [address] documented as of this encounter Visit Diagnoses Not on filedocumented in this encounter Care Teams Accounting Associate Relationship Specialty Start Date End Date PcpTristianssusha PCP - General Family Medicine 09/05/22 documented as of this encounter
--- OUTSIDE RECORDS SUMMARY | 2024-07-02 09:25 | XMS_ITS | Encounter Summary ---
Author Organization [employer] Address [address] [place] [address] [address] [place] [address] Care Team Providers Care Carpenter Form Name Role Phone PcpTristian Unassigned Primary Care [...] 08/14/2024 12:00 PM EDT Office Visit [facility] [address] [place] [address] Yuli Ramirez LLD [address] [place] [address] documented as of this encounter Visit Diagnoses Not on filedocumented in this encounter Care Teams Carpenter Form Relationship Specialty Start Date End Date PcpTristianssusha PCP - General Family Medicine 09/05/22 documented as of this encounter
--- OUTSIDE RECORDS SUMMARY | 2024-07-02 09:25 | XMS_ITS | Clinical Summary ---
Author Organization [employer] Address [address] [facility] 7t [place] [address] Care Team Providers Care Senior Test Engineer Name Role Phone PcpTristian Unassigned Primary Care [...] of SF 5000 Plus to a toothbrush. [place] thoroughly for two minutes. Expectorate after use. 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 05/26/2022 Immunizations Name Administration Dates Next Due Influenza High-dose Quadrivalent Preservative [facility] 03/03/2022 Influenza Quadrivalent Adjuvanted 03/15/2021 Influenza, High Dose Seasonal, Preservative Free 01/11/2018 Influenza, seasonal, injectable, preservative [facility] 01/09/2020 Pfizer Covid-19 Vaccine 12+ 03/01/2021 Pneumococcal [...] Visit [facility] [address] [place] [address] Yuli Ramirez LLD [address] [place] [address] Health Maintenance Due Date Last Done Comments [...] Screening 06/30/2024 06/30/2023 Dental X-Ray: Bitewings 07/01/2024 06/30/19, 09/28/2020, 05/28/2019, Additional history exists Dental Oral [...] Procedure Name Priority Date/Time Associated Diagnosis Comments Full PROPHYLAXIS - ADULT Routine 024 10:10 AM EDT PERIODIC ORAL EVALUATION - ESTABLISHED PATIENT Routine 02/08/2024 10:10 AM EDT INTRAORAL - COMPLETE SERIES OF RADIOGRAPHIC IMAGES Routine 06/30/2023 11:00 AM EST from Last 3 Months or Most Recently Relevant to Health Maintenance Insurance DENTAL - [facility] - N FULL (MEDICAID) * Guarantor: Linda Steward Account Type Relation to Patient Date of Phone Billing Address Personal/Family Self 2 [place] Care Teams Senior Test Engineer Relationship Specialty Start Date End Date PcpTristian Unassigned PCP - General Family Medicine 09/05/22
[2024-07-02 13:29] LABS: MANUAL DIFF FLAG NO
[2024-07-02 13:35] LABS: Basophils Absolute Auto 0.1 X10*3/uL (0.0-0.2); Basophils Percent Auto 0.9 % (0-2); Eosinophils Absolute Auto 0.2 X10*3/uL (0.0-0.4); Eosinophils Percent Auto 1.7 % (0-4); Hematocrit 40.2 % (37.0-47.0); Hemoglobin 13.3 g/dl (12.0-16.0); Imm Gran Abs Auto 0.04 X10*3/uL (0.00-0.03); Imm Gran Pct Auto 0.4 % (0.0-0.4); Lymphocytes Percent Auto 33.1 % (20-40); Mean Corpuscular HGB Conc 33.1 g/dl (31.0-35.0); Mean Corpuscular Hemoglobin 28.7 pg (27.0-33.0); Mean Corpuscular Volume 86.8 fL (80.0-98.0); Mean Platelet Volume 11.7 fL (9.4-12.3); Monocytes Absolute Auto 0.6 X10*3/uL (0.1-1.2); Monocytes Percent Auto 7.1 % (2-11); Neutrophils Absolute Auto 5.1 x10*3/uL (2.0-8.3); Neutrophils Percent Auto 56.8 % (45-73); Platelet Count 192 X10*3/uL (160-400); Red Blood Count 4.63 X10*6/uL (4.20-5.50); Red Cell Distribution Width 13.2 % (11.0-16.0)
[2024-07-02 14:13] LABS: Alanine Aminotransferase 25 U/L (0-31); Alkaline Phosphatase 68 U/L (39-117); Anion Gap 11 (12-20); Aspartate Amino Transferase 31 U/L (5-31); Bilirubin Total 0.4 mg/dL (0.0-1.0); Blood Urea Nitrogen 21 mg/dL (9-16); Calcium 9.6 mg/dL (8.4-10.2); Carbon Dioxide 27 mmol/L (22-29); Chloride 104 mmol/L (96-108); Cholesterol 128 mg/dL (<200); Estimated Glomerular Filt Rate 49; Glucose Random 111 mg/dL (60-115); HDL Cholesterol 53 mg/dL (>40); LDL Cholesterol Calculated 55 mg/dL (<100); Potassium 4.3 mmol/L (3.3-5.1); Sodium 138 mmol/L (135-145); Total Protein 7.3 g/dL (6.5-8.0); Triglycerides 102 mg/dL (<150)
[2024-07-07 05:19] LABS: VITAMIN D (1,25 OH) D3 13 pg/mL; Vit D (1,25-Dihydroxy) Total 13 pg/mL (18-72); Vitamin D (1,25 OH) D2 <8 pg/mL
== END 2024-07-02 08:47 | disposition home or self-care (01) ==
LOC: HO.MANLDS 08:46
PROVIDERS: Visit Provider Internal Medicine
DX: I10 Essential (primary) hypertension (principal)
CPT/HCPCS: 36415; 80053; 80061; 82652; 85025

== ENCOUNTER 2025-04-21 11:51 | Outpatient (REF) | payer OTHER, SELFPAY ==
[2025-04-21 14:32] LABS: Appearance Urine Cloudy; Glucose Urine UA Negative (Negative); PH 7.5 (5.0-9.0); Specific Gravity - Urine <= 1.005 (1.005-1.025); UMIC TRIGGER UACC YES
== END 2025-04-21 11:52 | disposition home or self-care (01) ==
LOC: HO.MANLDS 11:51
PROVIDERS: Visit Provider Internal Medicine
DX: R30.0 Dysuria (principal)
CPT/HCPCS: 81001; 81003